=== PATIENT | female | born 1965 | race African-American/Black ===

== ENCOUNTER 2021-12-26 16:55 | Emergency (ER) | payer BC, MEDICAID ==
[~2021-12-26] VITALS: Ht 167.6 cm; Wt 109.0 kg
[2021-12-26] MEDS ORDERED: BO1 TP (17:11)
[2021-12-26] MEDS ORDERED: IBUP-2030 MT (17:11)
[2021-12-26] MEDS ORDERED: ACYC200C31 PO (17:11)
[2021-12-26] MEDS ORDERED: METHYLPREDNISOLONE SOD SUCC 125 MG/2 ML VIAL IM ONE (17:15)
[2021-12-26] MEDS ORDERED: ACYCLOVIR 400 MG TABLET PO ONE (17:15)
[2021-12-26] MEDS ORDERED: IBUPROFEN 800MG TABLET PO ONE (17:15)
[2021-12-26] MEDS ORDERED: T3 PO (17:23)
[2021-12-26 17:26] VITALS: BP 145/80
== END 2021-12-26 17:57 | disposition home or self-care (01) ==
LOC: ER 17:24
DX: B02.9 Zoster without complications (principal); R21 Rash and other nonspecific skin eruption; I10 Essential (primary) hypertension
CPT/HCPCS: 93005; 96372; 99283; J2930